=== PATIENT | female | born 1965 | race Asian ===

== ENCOUNTER → 2016-12-08 | Outpatient (CLI) | payer MEDICAID ==
--- NOTE | 2016-12-08 09:16 | MA ---
Diagnostic Digital Mammogram With iCAD Analysis Clinical Indications: Evaluate palpable area in the upper outer left breast detected by the patient a nd confirmed on physical examination by her healthcare provider. Technique: Standard cephalocaudal projections are obtained. Digital breast tomosynthesis was performe d in the MLO projection with reconstruction at 1.0 mm slice thickness and composite MLO views reconst ructed. This examination is processed by the iCAD computer aided detection system. Comparison: Baseline study; no previous mammograms have been performed. Breast density: Type B; Scattered fibroglandular densities. Findings: CAD was reviewed. There is a 15 mm asymmetric spiculated opacity in the upper outer left br east corresponding to the palpable abnormality. No suspicious microcalcifications are identified. The right breast is negative. Impression: Palpable left breast mass requires further evaluation, BI-RADS 0. Recommendation: Targeted left breast ultrasound which will be subsequently performed today. A verbal report was given to the patient. [facility] will send a result letter to the patient. Negative mammography should not preclude additional workup of a clinically suspicious finding. The patient's information is entered into a reminder system with a target due date for her next mammo gram.
--- NOTE | 2016-12-08 11:14 | US ---
Left Breast Ultrasound History: Evaluate palpable lump. Technique: Longitudinal and transverse images were obtained utilizing a 15 MHz transducer. Color Dop pler evaluation is employed for assessment of vascularity. Examination is interpreted in conjunction with diagnostic mammography performed earlier today. Findings: The palpable area in the outer left breast at the 2 o'clock position 4 cm from the nipple i s easily identified on physical examination. Sonographic interrogation demonstrates a solid hypoechoi c shadowing mass measuring 15 mm in maximum dimension. This correlates with the spiculated abnormalit y noted mammographically. Impression: Findings highly suspicious for malignancy, BI-RADS 5. Recommendation: Sonographically guided large core left breast biopsy. Findings and biopsy recommendations were reviewed with the patient in detail. Additionally, a prelimi nary report was called to Dr. Espinal's office. They will fax a request for the biopsy procedure to [phone]. [facility] will send a result letter to the patient.
== END ==
LOC: FIMAGING 08:29
PROVIDERS: ATTEND Family Medicine
DX: N63 Unspecified lump in breast (principal); Z00.00 Encounter for general adult medical examination without abnormal findings
CPT/HCPCS: G0204; G0279

== ENCOUNTER → 2017-01-01 | Outpatient (CLI) | payer MEDICAID ==
[~2017-01-01] MED LIST: THROMBIN (RECOMBINANT) 5,000 UNIT VIAL TP ONE
== END ==
LOC: FIMAGING 08:38
PROVIDERS: ATTEND Family Medicine
PROC: 0HBU3ZX Excision of Left Breast, Percutaneous Approach, Diagnostic (ICD-10-PCS; principal; 2017-01-01)
DX: D05.12 Intraductal carcinoma in situ of left breast (principal)
CPT/HCPCS: G0206

== ENCOUNTER 2017-01-09 09:16 | Day surgery (SDC) | payer MEDICAID ==
[2017-01-09] MEDS ORDERED: LIDOCAINE 1% 5 ML SDV ONE (09:27)
[2017-01-09] MEDS ORDERED: LR 1,000 ML IV ONE (09:37)
[2017-01-09] MEDS ORDERED: LIDOCAINE 1% 5 ML SDV ID PRN (09:37)
[2017-01-09] MEDS ORDERED: MIDAZOLAM 2 MG/2 ML VIAL ONE (10:49)
[2017-01-09] MEDS ORDERED: fentaNYL 100 MCG/2 ML INJ ONE (10:54)
--- NOTE | 2017-01-09 12:38 | GPN ---
PREPROCEDURE DIAGNOSIS: Family history of colon polyps. Need for screening colonoscopy. POSTPROCEDURE DIAGNOSIS: Two small colon polyps, status post removal. PROCEDURE: Esophagogastroduodenoscopy with biopsy. MEDICATIONS: Monitored anesthesia care. INDICATIONS: The patient is a 51-year-old female with a history of left intraductal breast cancer, scheduled for surgery on Sunday who is here for colonoscopy. Both her brother and sister have a his tory of polyps in their 50s. The risks and the benefits of the procedure were discussed with the holden reese, and consent obtained. Risks include, but are not limited to, bleeding, perforation, risks re lated to sedation. The patient is ASA class 2. DESCRIPTION OF PROCEDURE: The adult colonoscope was advanced into the terminal ileum which appeared normal. The appendiceal orifice, IC valve, cecum appeared normal. There was a small 2 mm polyp re moved from the ascending colon with cold biopsy forceps and sent off to pathology. Hepatic flexure was normal. The transverse colon was normal. The splenic flexure was normal. The descending colon showed a small 1 mm polyp which was removed using cold biopsy forceps and sent off to pathology. T he descending colon and rectum were normal. Retroflexed views in the rectum showed grade 1 internal hemorrhoids. IMPRESSION: 1. Small polyp removed from colon. 2. Grade 1 internal hemorrhoids. RECOMMENDATIONS: 1. Discharge home with escort. 2. Advance diet as tolerated. 3. Continue current medications. 4. Repeat colonoscopy based on pathology results. If either polyp is found to be adenomatous, I re commend that she repeat a colonoscopy in 5 years. Thank you for allowing me to participate in the care of your patient. Please do not hesitate to yoko pacheco with questions. /[id number]/MODL
== END 2017-01-09 12:45 | disposition home or self-care (01) ==
LOC: FSGY 09:16 → FPAT 09:16 → FSGY 12:45
PROVIDERS: ATTEND Internal Medicine Gastroenterology
PROC: 0DBK8ZX Excision of Ascending Colon, Via Natural or Artificial Opening Endoscopic, Diagnostic (ICD-10-PCS; principal; 2017-01-09 10:15)
PROC: 0DBM8ZX Excision of Descending Colon, Via Natural or Artificial Opening Endoscopic, Diagnostic (ICD-10-PCS; principal; 2017-01-09 10:15)
DX: Z12.11 Encounter for screening for malignant neoplasm of colon (principal); D12.2 Benign neoplasm of ascending colon; D12.4 Benign neoplasm of descending colon; K64.0 First degree hemorrhoids; C50.912 Malignant neoplasm of unspecified site of left female breast; Z83.71 Family history of colonic polyps
CPT/HCPCS: J2250; J3010

== ENCOUNTER → 2017-01-12 | Outpatient (CLI) | payer MEDICAID | LOC: FIMAGING 11:53 | PROVIDERS: ATTEND Surgery | PROC: 3E0W3HZ Introduction of Radioactive Substance into Lymphatics, Percutaneous Approach (ICD-10-PCS; principal; 2017-01-12) | DX: C50.412 Malignant neoplasm of upper-outer quadrant of left female breast (principal) | CPT/HCPCS: 38792; A9520 ==

== ENCOUNTER → 2017-02-01 | Outpatient (CLI) | payer MEDICAID | LOC: FIMAGING 13:00 → EDSTATUS 13:02 → FIMAGING 13:03 | PROVIDERS: ATTEND Internal Medicine Hematology & Oncology | DX: M25.511 Pain in right shoulder (principal); C50.919 Malignant neoplasm of unspecified site of unspecified female breast ==

== ENCOUNTER → 2017-11-14 | Outpatient (CLI) | payer MEDICAID | LOC: FIMAGING 14:58 | PROVIDERS: ATTEND Internal Medicine Hematology & Oncology | DX: Z12.31 Encounter for screening mammogram for malignant neoplasm of breast (principal); Z85.3 Personal history of malignant neoplasm of breast ==

== ENCOUNTER → 2018-03-02 | Outpatient (CLI) | payer MEDICAID | LOC: FIMAGING 08:53 | PROVIDERS: ATTEND Family Medicine | DX: S73.102A Unspecified sprain of left hip, initial encounter (principal); S73.101A Unspecified sprain of right hip, initial encounter; R19.09 Other intra-abdominal and pelvic swelling, mass and lump; M51.36 Other intervertebral disc degeneration, lumbar region; M47.896 Other spondylosis, lumbar region ==

== ENCOUNTER → 2018-11-22 | Outpatient (CLI) | payer MEDICAID | LOC: FIMAGING 14:17 | PROVIDERS: ATTEND Internal Medicine Hematology & Oncology | DX: Z12.31 Encounter for screening mammogram for malignant neoplasm of breast (principal); Z85.3 Personal history of malignant neoplasm of breast ==